=== PATIENT | female | born 1990 | race Caucasian/White ===

== ENCOUNTER 2022-05-12 14:56 | Emergency (ER) | payer OTHER ==
[~2022-05-12] VITALS: Ht 160 cm; Wt 70.3 kg
[2022-05-12 15:15] VITALS: BP 145/82
--- NOTE | 2022-05-12 17:40 | NUR ---
CAME FOR COVID TEST, RESULT CAME AND SHE IS NEGATIVE, DISCHARGED UNDER THE CARE OF LAW ENFORCEMENT.
== END 2022-05-12 17:43 ==
LOC: ER 14:58
DX: Z02.89 Encounter for other administrative examinations (principal); Z20.822 Contact with and (suspected) exposure to COVID-19
CPT/HCPCS: 99283; 87426; C9803